=== PATIENT | male | born 1950 | race African-American/Black ===

== ENCOUNTER 2023-10-10 11:55 | Inpatient (IN) | payer OTHER ==
[2023-10-10 15:01] LABS: BASO % 0.5 % (0-2.0); EOS % 0.5 % (0-4.5); HEMATOCRIT 36.5 % (35.4-49); LYMPH % 10.6 % (8-40); MCH 30.5 pg (25.7-33.7); MCHC 32.9 g/dl (32.0-35.9); MEAN CELL VOLUME 92.5 fl (80-96); MEAN PLT VOLUME 8.3 fl (7.5-11.1); MONO % 4.8 % (3.8-10.2); NEUT % 83.6 % (42.8-82.8); PLATELET COUNT 190 10^3/uL (134-434); RBC 3.95 M/mm3 (4.00-5.60); RDW 12.8 % (11.9-15.9); WHITE BLOOD COUNT 6.9 K/mm3 (4.0-10.0)
[2023-10-10 15:08] LABS: INR 1.23 (0.83-1.09); PROTHROMBIN TIME (PATIENT) 14.2 SEC (9.7-13.0)
[2023-10-10 15:11] LABS: ACTIVATED PTT 29.3 SECONDS (25.2-36.5)
[2023-10-10 15:17] LABS: POTASSIUM 3.7 mmol/L (3.5-5.1)
[2023-10-10 15:19] LABS: ALBUMIN 3.1 g/dl (3.4-5.0); BLOOD UREA NITROGEN 15.5 mg/dL (7-18); CALCIUM 8.8 mg/dL (8.5-10.1)
[2023-10-10 15:22] LABS: CREATININE 0.7 mg/dL (0.55-1.3)
[2023-10-10 15:24] LABS: BILIRUBIN,TOTAL 1.1 mg/dL (0.2-1); TOT PROT 6.2 g/dl (6.4-8.2)
[2023-10-10] MEDS ORDERED: ACETAMINOPHEN INJECTION 100 ML IVPB ONE (20:46)
[2023-10-10] MEDS: ACETAMINOPHEN 1000 MG/100 ML BAG IVPB ONE (20:51)
[2023-10-10] MEDS ORDERED: ATORVASTATIN CA 40 MG TABLET (FP) ONE (23:34)
[2023-10-10] MEDS ORDERED: DONEPEZIL HCL 5 MG TABLET (FP) ONE (23:34)
[2023-10-10] MEDS ORDERED: HEPARIN NA (PORCINE) 5,000 UNITS/ML 1ML VIAL ONE (23:34)
[2023-10-10] MEDS ORDERED: traZODone HCL 50 MG TABLET (FP) ONE (23:38)
[2023-10-11] MEDS: DONEPEZIL HCL 10 MG TABLET (FP) PO SCH (00:03)
[2023-10-11] MEDS: OLANZapine 10 MG TABLET PO SCH (00:04)
[2023-10-11] MEDS: MELATONIN 1 MG TABLET PO SCH (00:04)
[2023-10-11] MEDS: ATORVASTATIN CA 40 MG TABLET (FP) PO SCH (00:04)
[2023-10-11] MEDS: HEPARIN NA (PORCINE) 5,000 UNITS/ML 1ML VIAL SQ SCH (00:04)
[2023-10-11] MEDS: traZODone HCL 50 MG TABLET (FP) PO SCH (00:04)
[2023-10-11] MEDS ORDERED: hydrOXYzine HCL 100 MG/2 ML VIAL IM ONE (01:49)
[2023-10-11] MEDS: TAMSULOSIN HCL 0.4 MG CAP PO SCH (08:38)
[2023-10-11] MEDS: POLYETHYLENE GLYCOL (HEALTHYLAX) 3350 17 GM PACKET PO SCH (09:48)
[2023-10-11] MEDS: FLUoxetine HCL 20 MG CAPSULE PO SCH (09:49)
[2023-10-11 10:19] LABS: BASO % 0.5 % (0-2.0); EOS % 0.7 % (0-4.5); HEMATOCRIT 33.5 % (35.4-49); HEMOGLOBIN 11.1 GM/dL (11.7-16.9); LYMPH % 14.9 % (8-40); MCH 30.6 pg (25.7-33.7); MEAN CELL VOLUME 92.6 fl (80-96); MEAN PLT VOLUME 8.9 fl (7.5-11.1); MONO % 5.2 % (3.8-10.2); NEUT % 78.7 % (42.8-82.8); PLATELET COUNT 185 10^3/uL (134-434); RBC 3.62 M/mm3 (4.00-5.60); RDW 13.1 % (11.9-15.9); WHITE BLOOD COUNT 6.1 K/mm3 (4.0-10.0)
[2023-10-11 10:34] LABS: POTASSIUM 3.4 mmol/L (3.5-5.1)
[2023-10-11 10:54] LABS: CALCIUM 8.9 mg/dL (8.5-10.1)
[2023-10-11 10:55] LABS: BLOOD UREA NITROGEN 20.8 mg/dL (7-18)
[2023-10-11 10:58] LABS: CREATININE 0.8 mg/dL (0.55-1.3)
[2023-10-11] MEDS: amLODIPine BESYLATE 5 MG TABLET (FP) PO SCH (21:35)
[2023-10-12 08:16] LABS: INR 1.32 (0.83-1.09); PROTHROMBIN TIME (PATIENT) 15.3 SEC (9.7-13.0)
[2023-10-12 08:22] LABS: POTASSIUM 3.8 mmol/L (3.5-5.1)
[2023-10-12 08:30] LABS: CALCIUM 8.5 mg/dL (8.5-10.1); MAGNESIUM 2.2 mg/dL (1.8-2.4)
[2023-10-12 08:33] LABS: CREATININE 0.8 mg/dL (0.55-1.3); HEMATOCRIT 34.7 % (35.4-49); HEMOGLOBIN 11.4 GM/dL (11.7-16.9); MCH 30.6 pg (25.7-33.7); MCHC 32.9 g/dl (32.0-35.9); MEAN CELL VOLUME 93.1 fl (80-96); MEAN PLT VOLUME 8.7 fl (7.5-11.1); PHOSPHOROUS 3.6 mg/dL (2.5-4.9); PLATELET COUNT 189 10^3/uL (134-434); RBC 3.72 M/mm3 (4.00-5.60); RDW 13.3 % (11.9-15.9); WHITE BLOOD COUNT 7.6 K/mm3 (4.0-10.0)
[2023-10-12 08:35] LABS: BILIRUBIN,TOTAL 1.4 mg/dL (0.2-1); TOT PROT 5.8 g/dl (6.4-8.2)
[2023-10-12] MEDS: AMINO ACIDS 4.25%/D5W 1,000 ML IV SCH ×2 (11:06→11:30)
[2023-10-12] MEDS: PIPERACILLIN/TAZOB 4.5 GM 4.5 GM in DEXTROSE 5%-WATER 100 ML IVPB ONE (11:36)
[2023-10-12] MEDS: VANCOMYCIN PREMIX 1.5 GM 1,500 MG/300 ML BAG IVPB ONE (12:24)
[2023-10-12 15:13] LABS: EPI CELLS 28 /uL (0-25.1); HYALINE CASTS 1 /uL (0-3.1); URINE APPEARANCE CLEAR; URINE BACTERIA 135 /uL (0-1359); URINE BILIRUBIN NEGATIVE (NEGATIVE); URINE COLOR YELLOW; URINE GLUCOSE (UA) NEGATIVE (NEGATIVE); URINE KETONE 2+ (NEGATIVE); URINE LEUK ESTERASE NEGATIVE (NEGATIVE); URINE NITRITE NEGATIVE (NEGATIVE); URINE PROTEIN TRACE (NEGATIVE); URINE RBC 98 /uL (0-23.9); URINE WBC 25 /uL (0-25.8)
[2023-10-12 15:27] LABS: URINE CRYSTALS Uric Acid- many /hpf
[2023-10-12] MEDS ORDERED: PIPERACILLIN/TAZOB 4.5 GM 4.5 GM in DEXTROSE 5%-WATER 100 ML IVPB SCH (18:00)
[2023-10-12] MEDS: PIPERACILLIN/TAZOB 4.5 GM 4.5 GM in DEXTROSE 5%-WATER 100 ML IVPB SCH (19:02)
[2023-10-12] MEDS: ACETAMINOPHEN 1000 MG/100 ML BAG IVPB ONE (21:23)
[2023-10-12] MEDS ORDERED: FAT EMULSION/OLIVE/SOY (CLINOLIPID) 250 ML EMULSION IV SCH (22:00)
[2023-10-13] MEDS ORDERED: VANCOMYCIN/WATER 1250 MG 1,250 MG/250 ML BAG IVPB SCH ×2
[2023-10-13] MEDS: FAT EMULSION/OLIVE/SOY/PHOSPHO 250 ML IV SCH (00:46)
[2023-10-13 10:25] LABS: HEMATOCRIT 32.1 % (35.4-49); HEMOGLOBIN 10.9 GM/dL (11.7-16.9); MCH 31.3 pg (25.7-33.7); MEAN CELL VOLUME 91.9 fl (80-96); MEAN PLT VOLUME 8.3 fl (7.5-11.1); PLATELET COUNT 174 10^3/uL (134-434); RBC 3.49 M/mm3 (4.00-5.60); RDW 13.2 % (11.9-15.9); WHITE BLOOD COUNT 3.7 K/mm3 (4.0-10.0)
[2023-10-13 10:47] LABS: POTASSIUM 3.4 mmol/L (3.5-5.1)
[2023-10-13 10:51] LABS: ALBUMIN 2.8 g/dl (3.4-5.0); BLOOD UREA NITROGEN 25.5 mg/dL (7-18); CALCIUM 8.5 mg/dL (8.5-10.1); MAGNESIUM 2.2 mg/dL (1.8-2.4)
[2023-10-13 10:54] LABS: CREATININE 0.8 mg/dL (0.55-1.3); PHOSPHOROUS 2.3 mg/dL (2.5-4.9)
[2023-10-13 10:56] LABS: TOT PROT 5.6 g/dl (6.4-8.2)
[2023-10-13] MEDS: PANTOPRAZOLE SODIUM 40 MG VIAL IVPUSH SCH (14:08)
[2023-10-13] MEDS: HALOPERIDOL LACTATE 5 MG/ML IM ONE (16:42)
[2023-10-13] MEDS: NAPH,MB-DB/K PH,MBDB POWDER PACKET PO ONE (17:39)
[2023-10-13 22:58] VITALS: BMI 21.1
[2023-10-14 08:21] LABS: HEMATOCRIT 32.4 % (35.4-49); HEMOGLOBIN 10.9 GM/dL (11.7-16.9); MCH 30.9 pg (25.7-33.7); MCHC 33.8 g/dl (32.0-35.9); MEAN CELL VOLUME 91.4 fl (80-96); MEAN PLT VOLUME 9.1 fl (7.5-11.1); PLATELET COUNT 159 10^3/uL (134-434); RBC 3.54 M/mm3 (4.00-5.60); WHITE BLOOD COUNT 4.5 K/mm3 (4.0-10.0)
[2023-10-14 08:54] LABS: POTASSIUM 3.1 mmol/L (3.5-5.1)
[2023-10-14 08:58] LABS: CALCIUM 8.2 mg/dL (8.5-10.1)
[2023-10-14 08:59] LABS: ALBUMIN 2.6 g/dl (3.4-5.0); BLOOD UREA NITROGEN 22.2 mg/dL (7-18)
[2023-10-14 09:00] LABS: MAGNESIUM 1.9 mg/dL (1.8-2.4)
[2023-10-14 09:01] LABS: PHOSPHOROUS 2.3 mg/dL (2.5-4.9)
[2023-10-14 09:02] LABS: BILIRUBIN,TOTAL 0.9 mg/dL (0.2-1); CREATININE 0.8 mg/dL (0.55-1.3)
[2023-10-14 09:03] LABS: TOT PROT 5.3 g/dl (6.4-8.2)
[2023-10-14] MEDS: THIAMINE HCL 200 MG/2 ML VIAL IVPB SCH (09:58)
[2023-10-14] MEDS: ASCORBIC ACID 250 MG TABLET (FP) PO SCH (10:03)
[2023-10-14] MEDS: ZINC SULFATE 220 MG CAPSULE (FP) PO SCH (10:03)
[2023-10-14] MEDS: MULTIVITAMINS (DAILY MVI) TABLET (FP) PO SCH (10:03)
[2023-10-14] MEDS: POTASSIUM PHOSPHATE 30 MM in AMINO ACIDS 4.25%/D5W 1,000 ML IVPB SCH (13:35)
[2023-10-15] MEDS: AMINO ACIDS 4.25%/D5W 1,000 ML IV SCH (02:01)
[2023-10-15] MEDS: LORazepam 2 MG/ML SDV VIAL IVPUSH ONE (03:32)
[2023-10-15 09:20] LABS: BASO % 0.5 % (0-2.0); EOS % 2.3 % (0-4.5); HEMATOCRIT 32.6 % (35.4-49); HEMOGLOBIN 11.1 GM/dL (11.7-16.9); LYMPH % 24.1 % (8-40); MCH 31.1 pg (25.7-33.7); MEAN CELL VOLUME 91.5 fl (80-96); MEAN PLT VOLUME 9.2 fl (7.5-11.1); MONO % 9.5 % (3.8-10.2); NEUT % 63.6 % (42.8-82.8); PLATELET COUNT 147 10^3/uL (134-434); RBC 3.57 M/mm3 (4.00-5.60); RDW 13.2 % (11.9-15.9); WHITE BLOOD COUNT 4.2 K/mm3 (4.0-10.0)
[2023-10-15 09:58] LABS: POTASSIUM 3.3 mmol/L (3.5-5.1)
[2023-10-15 10:46] LABS: MAGNESIUM 1.9 mg/dL (1.8-2.4)
[2023-10-15 10:48] LABS: CALCIUM 8.6 mg/dL (8.5-10.1)
[2023-10-15 10:49] LABS: BLOOD UREA NITROGEN 17.4 mg/dL (7-18)
[2023-10-15 10:52] LABS: PHOSPHOROUS 2.6 mg/dL (2.5-4.9)
[2023-10-15 10:53] LABS: CREATININE 0.7 mg/dL (0.55-1.3)
[2023-10-15] MEDS ORDERED: TAMSULOSIN HCL 0.4 MG CAP PO SCH (11:27)
[2023-10-15] MEDS: POTASSIUM CHLORIDE ORAL LIQUID 20 MEQ/15 ML NGT ONE (13:12)
[2023-10-15] MEDS: DOXAZOSIN MESYLATE 1 MG TABLET PO ONE (13:20)
[2023-10-15] MEDS: POTASSIUM PHOSPHATE 15 MM in SODIUM CHLORIDE 250 ML IVPB ONE (13:20)
[2023-10-15] MEDS: OLANZapine 10 MG TABLET PO SCH (22:54)
[2023-10-15] MEDS: ATORVASTATIN CA 40 MG TABLET (FP) PO SCH (22:54)
[2023-10-16] MEDS: AMINO ACIDS 4.25%/D5W 1,000 ML IV SCH (06:11)
[2023-10-16 08:17] LABS: HEMATOCRIT 33.9 % (35.4-49); HEMOGLOBIN 11.2 GM/dL (11.7-16.9); MCH 30.3 pg (25.7-33.7); MEAN CELL VOLUME 91.8 fl (80-96); MEAN PLT VOLUME 9.3 fl (7.5-11.1); PLATELET COUNT 160 10^3/uL (134-434); RBC 3.69 M/mm3 (4.00-5.60); RDW 12.8 % (11.9-15.9); WHITE BLOOD COUNT 4.1 K/mm3 (4.0-10.0)
[2023-10-16] MEDS ORDERED: TAMSULOSIN HCL 0.4 MG CAP PO SCH (08:30)
[2023-10-16 08:40] LABS: POTASSIUM 3.6 mmol/L (3.5-5.1)
[2023-10-16 08:53] LABS: BLOOD UREA NITROGEN 14.9 mg/dL (7-18); CALCIUM 8.2 mg/dL (8.5-10.1)
[2023-10-16 08:54] LABS: MAGNESIUM 2.2 mg/dL (1.8-2.4)
[2023-10-16] MEDS: DOXAZOSIN MESYLATE 1 MG TABLET PO SCH (08:55)
[2023-10-16 08:56] LABS: CREATININE 0.7 mg/dL (0.55-1.3); PHOSPHOROUS 2.4 mg/dL (2.5-4.9)
[2023-10-16] MEDS: ZINC SULFATE 220 MG CAPSULE (FP) PO SCH (11:11)
[2023-10-16] MEDS: ASCORBIC ACID 250 MG TABLET (FP) PO SCH (11:11)
[2023-10-16] MEDS: POLYETHYLENE GLYCOL (HEALTHYLAX) 3350 17 GM PACKET PO SCH (11:11)
[2023-10-16] MEDS: amLODIPine BESYLATE 5 MG TABLET (FP) PO SCH (11:11)
[2023-10-16] MEDS: MULTIVITAMINS (DAILY MVI) TABLET (FP) PO SCH (11:11)
[2023-10-16] MEDS: FLUoxetine HCL 20 MG CAPSULE PO SCH (11:12)
[2023-10-16] MEDS ORDERED: NAPH,MB-DB/K PH,MBDB POWDER PACKET PO SCH (11:45)
[2023-10-16] MEDS: BENZTROPINE MESYLATE 1 MG TABLET PO SCH (12:11)
[2023-10-16] MEDS: PANTOPRAZOLE 40 MG TABLET PO SCH (12:40)
[2023-10-16] MEDS: DRONABINOL 2.5 MG CAPSULE PO SCH (17:03)
[2023-10-16] MEDS: OLANZapine 10 MG TABLET NGT SCH (21:46)
[2023-10-16] MEDS: ATORVASTATIN CA 40 MG TABLET (FP) NGT SCH (21:46)
[2023-10-17 09:06] LABS: HEMATOCRIT 33.9 % (35.4-49); HEMOGLOBIN 11.6 GM/dL (11.7-16.9); MCHC 34.2 g/dl (32.0-35.9); MEAN CELL VOLUME 90.8 fl (80-96); PLATELET COUNT 150 10^3/uL (134-434); RBC 3.73 M/mm3 (4.00-5.60); RDW 12.9 % (11.9-15.9); WHITE BLOOD COUNT 4.8 K/mm3 (4.0-10.0)
[2023-10-17 09:44] LABS: POTASSIUM 3.4 mmol/L (3.5-5.1)
[2023-10-17 09:57] LABS: BLOOD UREA NITROGEN 10.7 mg/dL (7-18)
[2023-10-17 09:58] LABS: PHOSPHOROUS 2.5 mg/dL (2.5-4.9)
[2023-10-17 09:59] LABS: CREATININE 0.7 mg/dL (0.55-1.3)
[2023-10-17] MEDS ORDERED: BENZTROPINE MESYLATE 1 MG TABLET PO SCH (10:00)
[2023-10-17 10:01] LABS: CALCIUM 8.6 mg/dL (8.5-10.1)
[2023-10-17] MEDS ORDERED: POTASSIUM CHLORIDE ORAL LIQUID 20 MEQ/15 ML PO ONE (11:00)
[2023-10-17] MEDS: LIDOCAINE VISCOUS 2% ORAL/TOP 15 ML UNIT-DOSE CUP MM PRN (12:10)
[2023-10-17] MEDS: DOXAZOSIN MESYLATE 1 MG TABLET NGT SCH (12:53)
[2023-10-17] MEDS: POLYETHYLENE GLYCOL (HEALTHYLAX) 3350 17 GM PACKET NGT SCH (12:53)
[2023-10-17] MEDS: BENZTROPINE MESYLATE 1 MG TABLET NGT SCH (12:53)
[2023-10-17] MEDS: NAPH,MB-DB/K PH,MBDB POWDER PACKET NGT SCH (12:54)
[2023-10-17] MEDS: ZINC SULFATE 220 MG CAPSULE (FP) NGT SCH (12:54)
[2023-10-17] MEDS: ASCORBIC ACID 250 MG TABLET (FP) NGT SCH (12:54)
[2023-10-17] MEDS: amLODIPine BESYLATE 5 MG TABLET (FP) NGT SCH (12:55)
[2023-10-17] MEDS: POTASSIUM CHLORIDE ORAL LIQUID 20 MEQ/15 ML PO ONE (12:56)
[2023-10-18 09:11] LABS: HEMATOCRIT 33.2 % (35.4-49); HEMOGLOBIN 11.2 GM/dL (11.7-16.9); MCH 30.5 pg (25.7-33.7); MCHC 33.7 g/dl (32.0-35.9); MEAN CELL VOLUME 90.7 fl (80-96); MEAN PLT VOLUME 9.2 fl (7.5-11.1); PLATELET COUNT 161 10^3/uL (134-434); RBC 3.67 M/mm3 (4.00-5.60); WHITE BLOOD COUNT 5.3 K/mm3 (4.0-10.0)
[2023-10-18 09:24] LABS: POTASSIUM 3.5 mmol/L (3.5-5.1)
[2023-10-18 09:30] LABS: ALBUMIN 2.7 g/dl (3.4-5.0); BLOOD UREA NITROGEN 10.8 mg/dL (7-18); CALCIUM 8.4 mg/dL (8.5-10.1)
[2023-10-18 09:32] LABS: CREATININE 0.7 mg/dL (0.55-1.3)
[2023-10-18 09:33] LABS: PHOSPHOROUS 2.4 mg/dL (2.5-4.9)
[2023-10-18 09:34] LABS: BILIRUBIN,TOTAL 1.1 mg/dL (0.2-1)
[2023-10-18 09:35] LABS: TOT PROT 5.7 g/dl (6.4-8.2)
[2023-10-18] MEDS: BENZTROPINE MESYLATE 1 MG TABLET PO SCH (22:38)
[2023-10-18] MEDS: ATORVASTATIN CA 40 MG TABLET (FP) PO SCH (22:38)
[2023-10-18] MEDS: OLANZapine 10 MG TABLET PO SCH (22:39)
[2023-10-18] MEDS: AMINO ACIDS 4.25%/D5W 1,000 ML IV SCH (22:39)
[2023-10-19 08:33] LABS: HEMOGLOBIN 11.5 GM/dL (11.7-16.9); MCHC 33.9 g/dl (32.0-35.9); MEAN CELL VOLUME 91.3 fl (80-96); MEAN PLT VOLUME 9.3 fl (7.5-11.1); PLATELET COUNT 167 10^3/uL (134-434); RBC 3.72 M/mm3 (4.00-5.60); RDW 13.1 % (11.9-15.9); WHITE BLOOD COUNT 5.2 K/mm3 (4.0-10.0)
[2023-10-19 09:20] LABS: ALBUMIN 2.9 g/dl (3.4-5.0); BLOOD UREA NITROGEN 14.3 mg/dL (7-18); CALCIUM 9.1 mg/dL (8.5-10.1); MAGNESIUM 2.3 mg/dL (1.8-2.4)
[2023-10-19 09:23] LABS: PHOSPHOROUS 2.6 mg/dL (2.5-4.9)
[2023-10-19 09:24] LABS: BILIRUBIN,TOTAL 0.8 mg/dL (0.2-1)
[2023-10-19 09:28] LABS: CREATININE 0.8 mg/dL (0.55-1.3)
[2023-10-19] MEDS: POLYETHYLENE GLYCOL (HEALTHYLAX) 3350 17 GM PACKET PO SCH (10:52)
[2023-10-19] MEDS: ZINC SULFATE 220 MG CAPSULE (FP) PO SCH (10:54)
[2023-10-19] MEDS: ASCORBIC ACID 250 MG TABLET (FP) PO SCH (10:54)
[2023-10-19] MEDS: MULTIVITAMINS (DAILY MVI) TABLET (FP) PO SCH (10:55)
[2023-10-19] MEDS: NAPH,MB-DB/K PH,MBDB POWDER PACKET PO SCH (10:55)
[2023-10-19] MEDS: amLODIPine BESYLATE 5 MG TABLET (FP) PO SCH (10:55)
[2023-10-19] MEDS: DOXAZOSIN MESYLATE 1 MG TABLET PO SCH (10:56)
[2023-10-19] MEDS: LIDOCAINE VISCOUS 2% ORAL/TOP 15 ML UNIT-DOSE CUP MM PRN (18:34)
[2023-10-20 08:15] LABS: HEMATOCRIT 33.3 % (35.4-49); HEMOGLOBIN 10.9 GM/dL (11.7-16.9); MCH 30.2 pg (25.7-33.7); MCHC 32.8 g/dl (32.0-35.9); MEAN CELL VOLUME 91.9 fl (80-96); MEAN PLT VOLUME 9.1 fl (7.5-11.1); PLATELET COUNT 184 10^3/uL (134-434); RBC 3.62 M/mm3 (4.00-5.60); RDW 13.2 % (11.9-15.9); WHITE BLOOD COUNT 4.9 K/mm3 (4.0-10.0)
[2023-10-20 08:19] LABS: INR 1.17 (0.83-1.09); PROTHROMBIN TIME (PATIENT) 13.5 SEC (9.7-13.0)
[2023-10-20 08:32] LABS: CALCIUM 8.8 mg/dL (8.5-10.1)
[2023-10-20 08:33] LABS: ALBUMIN 2.8 g/dl (3.4-5.0); BLOOD UREA NITROGEN 17.5 mg/dL (7-18); MAGNESIUM 2.4 mg/dL (1.8-2.4)
[2023-10-20 08:35] LABS: POTASSIUM 4.1 mmol/L (3.5-5.1)
[2023-10-20 08:36] LABS: CREATININE 0.7 mg/dL (0.55-1.3); PHOSPHOROUS 2.4 mg/dL (2.5-4.9)
[2023-10-20 08:38] LABS: BILIRUBIN,TOTAL 0.8 mg/dL (0.2-1); TOT PROT 5.9 g/dl (6.4-8.2)
[2023-10-20] MEDS ORDERED: NAPH,MB-DB/K PH,MBDB POWDER PACKET PO ONE (12:19)
[2023-10-21 09:39] LABS: HEMATOCRIT 34.7 % (35.4-49); HEMOGLOBIN 11.3 GM/dL (11.7-16.9); MCHC 32.6 g/dl (32.0-35.9); MEAN CELL VOLUME 92.1 fl (80-96); MEAN PLT VOLUME 8.9 fl (7.5-11.1); PLATELET COUNT 193 10^3/uL (134-434); RBC 3.76 M/mm3 (4.00-5.60); WHITE BLOOD COUNT 5.7 K/mm3 (4.0-10.0)
[2023-10-21 09:59] LABS: POTASSIUM 4.2 mmol/L (3.5-5.1)
[2023-10-21 10:14] LABS: CALCIUM 8.6 mg/dL (8.5-10.1)
[2023-10-21 10:15] LABS: BLOOD UREA NITROGEN 17.8 mg/dL (7-18); MAGNESIUM 2.3 mg/dL (1.8-2.4)
[2023-10-21 10:18] LABS: BILIRUBIN,TOTAL 0.8 mg/dL (0.2-1); CREATININE 0.8 mg/dL (0.55-1.3); PHOSPHOROUS 2.7 mg/dL (2.5-4.9); TOT PROT 6.1 g/dl (6.4-8.2)
[2023-10-22 09:10] LABS: HEMATOCRIT 33.5 % (35.4-49); HEMOGLOBIN 11.2 GM/dL (11.7-16.9); MCH 30.3 pg (25.7-33.7); MCHC 33.3 g/dl (32.0-35.9); MEAN CELL VOLUME 91.1 fl (80-96); MEAN PLT VOLUME 8.4 fl (7.5-11.1); PLATELET COUNT 204 10^3/uL (134-434); RBC 3.68 M/mm3 (4.00-5.60); RDW 13.2 % (11.9-15.9); WHITE BLOOD COUNT 5.5 K/mm3 (4.0-10.0)
[2023-10-22 09:31] LABS: POTASSIUM 4.1 mmol/L (3.5-5.1)
[2023-10-22 09:36] LABS: BLOOD UREA NITROGEN 16.7 mg/dL (7-18); CALCIUM 8.8 mg/dL (8.5-10.1); MAGNESIUM 2.2 mg/dL (1.8-2.4)
[2023-10-22 09:38] LABS: PHOSPHOROUS 2.8 mg/dL (2.5-4.9)
[2023-10-22 09:40] LABS: CREATININE 0.9 mg/dL (0.55-1.3)
[2023-10-22 09:41] LABS: BILIRUBIN,TOTAL 1.1 mg/dL (0.2-1); TOT PROT 6.2 g/dl (6.4-8.2)
[2023-10-22] MEDS: THIAMINE 100 MG TABLET PO SCH (10:35)
[2023-10-22] MEDS ORDERED: DOCUSATE SODIUM 100 MG CAPSULE (FP) PO PRN (17:28)
[2023-10-24 02:46] VITALS: RESP 18
[2023-10-24 14:34] VITALS: BP 130/61; PULSE 85; TEMP 98.7
== END 2023-10-24 15:47 | DRG 884 ==
LOC: JER 11:55 → JERBED 14:37 → J6S 10-11 01:45 → OBSVTOIN 10-11 15:10
PROVIDERS: ADMIT Internal Medicine; ATTEND Internal Medicine
PROC: 0DH67UZ Insertion of Feeding Device into Stomach, Via Natural or Artificial Opening (ICD-10-PCS; principal; 2023-10-13)
PROC: 3E0G76Z Introduction of Nutritional Substance into Upper GI, Via Natural or Artificial Opening (ICD-10-PCS; 2023-10-13)
DX: F03.C0 Unspecified dementia, severe, without behavioral disturbance, psychotic disturbance, mood disturbance, and anxiety (principal); E43 Unspecified severe protein-calorie malnutrition; J69.0 Pneumonitis due to inhalation of food and vomit; G93.41 Metabolic encephalopathy; F20.0 Paranoid schizophrenia; G21.19 Other drug induced secondary parkinsonism; R62.7 Adult failure to thrive; N40.0 Benign prostatic hyperplasia without lower urinary tract symptoms; G47.00 Insomnia, unspecified; E87.6 Hypokalemia; E83.39 Other disorders of phosphorus metabolism; L89.152 Pressure ulcer of sacral region, stage 2; T43.505A Adverse effect of unspecified antipsychotics and neuroleptics, initial encounter; R13.10 Dysphagia, unspecified; D50.9 Iron deficiency anemia, unspecified; K59.00 Constipation, unspecified; D63.8 Anemia in other chronic diseases classified elsewhere; G24.01 Drug induced subacute dyskinesia; W19.XXXA Unspecified fall, initial encounter; Y93.89 Activity, other specified; Y92.230 Patient room in hospital as the place of occurrence of the external cause; Y99.8 Other external cause status; Z68.21 Body mass index [BMI] 21.0-21.9, adult
CPT/HCPCS: 0241U-QW; 36415; 70450-TC; 71045-TC-FY; 74230-TC-FY; 80048; 80053; 81003; 82607; 82728; 82746; 82962; 83540; 83550; 83605; 83735; 84100; 84478; 85025; 85027; 85045; 85610; 85730; 86850; 86900; 86901; 87040; 87081; 87086; 92611-GN; 93005; 93010; 99285-25; G0378; J0131; J1644